=== PATIENT | male | born 1955 | race Caucasian/White ===

== ENCOUNTER 2021-06-07 07:47 | Emergency (ER) | payer BC ==
[2021-06-07] MEDS ORDERED: Sodium Chloride 0.9% 10 ML Syringe FLUSH PRN (08:23)
--- NOTE | 2021-06-07 08:32 | EDM.PDOC ---
ED HPI GENERAL MEDICAL PROBLEM - General Chief Complaint: Abdominal Pain Stated Complaint: ALL OVER STOMACH PROBLEMS Time Seen by Provider: 06/07/21 08:15 Source of Information: Reports: Patient, RN. Denies: Old Records History Limitations: Reports: Other (no records) - History of Present Illness INITIAL COMMENTS - FREE TEXT/NARRATIVE: 65 yo smoking male from [place] presents with progressive abdominal pain since yesterday AM. Was unable to have a BM this AM. No fever, past surgeries, nausea or bloody stool. He has increased pain with movement and thinks his abdomen is distended. He took ibuprofen 800 mg this AM with partial relief. Denies use of any alcohol. Onset: Sudden Onset Date: 06/06/21 Duration: Day(s): (1+), Getting Worse Location: Reports: Abdomen Quality: Reports: Ache Severity: Moderate Improves with: Reports: Medication (ibuprofen helping a little) Worsens with: Reports: Other (unknown) Context: Reports: Other (See HPI) Associated Symptoms: Reports: No Other Symptoms. Denies: Fever/Chills, Nausea/Vomiting Treatments RUNNER OUT: Reports: NSAIDS - Related Data Allergies Allergy/AdvReac Type Severity Reaction Status Date / Time No Known Allergies Allergy Verified 06/07/21 08:02 Home Meds: Home Meds Gabapentin [Neurontin] 100 mg PO DAILY 06/07/21 [History] Levothyroxine 150 mcg PO DAILY 06/07/21 [History] lisinopriL [Lisinopril] 20 mg PO DAILY 06/07/21 [History] Past Medical History Cardiovascular History: Reports: High Cholesterol, Hypertension Genitourinary History: Reports: Prostate Disorder - Infectious Disease History Infectious Disease History: Reports: Chicken Pox, Measles, Mumps - Past Surgical History HEENT Surgical History: Reports: Tonsillectomy Social & Family History - Tobacco Use Tobacco Use Status *Q: Current Every Day Tobacco User Years of Tobacco use: 50 Packs/Tins Daily: 1.2 Used Tobacco, but Quit: No - Caffeine Use Caffeine Use: Reports: Coffee, Soda - Recreational Drug Use Recreational Drug Use: No ED ROS GENERAL - Review of Systems Review Of Systems: See Below Constitutional: Reports: No Symptoms HEENT: Reports: No Symptoms Respiratory: Reports: No Symptoms Cardiovascular: Reports: No Symptoms GI/Abdominal: Reports: Abdominal Pain, Distension. Denies: Black Stool, Bloody Stool, Constipation, Diarrhea, Hematemesis, Hematochezia, Nausea, Vomiting : Reports: No Symptoms Musculoskeletal: Reports: No Symptoms Skin: Reports: No Symptoms Neurological: Reports: No Symptoms ED EXAM, GI/ABD - Physical Exam Exam: See Below Exam Limited By: No Limitations General Appearance: Alert, WD/WN, No Apparent Distress Eyes: Bilateral: Normal Appearance Ears: Normal External Exam, Normal Canal, Hearing Grossly Normal Nose: Normal Inspection, No Blood Throat/Mouth: Normal Inspection, Normal Lips, Normal Voice, No Airway Compromise Head: Atraumatic, Normocephalic Neck: Normal Inspection Respiratory/Chest: No Respiratory Distress, Lungs Clear, Normal Breath Sounds, No Accessory Muscle Use Cardiovascular: Regular Rate, Rhythm, No Edema GI/Abdominal Exam: Normal Bowel Sounds, Soft, Tender (diffusely, more on the L side). No: Non-Tender, Distended (obese), Guarding, Rigid, Rebound Back Exam: Normal Inspection. No: CVA Tenderness (R), CVA Tenderness (L) Extremities: Normal Inspection, Normal Range of Motion, Non-Tender, No Pedal Edema Neurological: Alert, Oriented, CN II-XII Intact, Normal Cognition, No Motor/Sensory Deficits Psychiatric: Normal Affect, Normal Mood Skin Exam: Warm, Dry, Intact, Normal Color, No Rash Course - Vital Signs Text/Narrative:: Dr. Stephenson called @ 1057h Called Marcelino Corbett @ 1102h called Juliano Corbett @ 1110h Called [facility] @ 1112h Called Marcelino Hodges @ 1113h [employer] @ 1200h Last Recorded V/S: Last Vital Signs Temp 36.2 C 06/07/21 10:44 Pulse 60 06/07/21 10:44 Resp 16 06/07/21 10:44 BP 160/80 H 06/07/21 10:44 Pulse Ox 97 06/07/21 10:44 - Orders/Labs/Meds Orders: Active Orders 24 hr Category Date Time Status HYDROmorphone [Dilaudid] Med 06/07/21 13:00 Once 0.5 mg IVPUSH ONETIME ONE Sodium Chloride 0.9% [Normal Saline] 1,000 ml Med 06/07/21 11:00 Active IV ASDIRECTED Sodium Chloride 0.9% [Saline Flush] Med 06/07/21 08:23 Active 10 ml FLUSH ASDIRECTED PRN Saline Lock Insert [OM.PC] Routine Oth 06/07/21 08:23 Ordered Medication Orders Sodium Chloride (Normal Saline) 1,000 mls @ 150 mls/hr IV ASDIRECTED SHILPA Last Admin: 06/07/21 11:03 Dose: 150 mls/hr Documented by: DYLON Sodium Chloride (Sodium Chloride 0.9% 10 Ml Syringe) 10 ml FLUSH ASDIRECTED PRN PRN Reason: Keep Vein Open Last Admin: 06/07/21 08:45 Dose: 10 ml Documented by: DYLON Labs: Laboratory Tests 06/07/21 06/07/21 06/07/21 Range/Units 08:21 08:21 10:20 WBC 11.4 H (4.5-11.0) K/uL RBC 4.96 (4.30-5.90) M/uL Hgb 15.5 H (12.0-15.0) g/dL Hct 47.2 (40.0-54.0) % MCV 95 (80-98) fL MCH 31 (27-31) pg MCHC 33 (32-36) % Plt Count 223 (150-400) K/uL Sodium 134 L (140-148) mmol/L Potassium 4.6 (3.6-5.2) mmol/L Chloride 102 (100-108) mmol/L Carbon Dioxide 25 (21-32) mmol/L Anion Gap 11.6 (5.0-14.0) mmol/L BUN 18 (7-18) mg/dL Creatinine 1.0 (0.8-1.3) mg/dL Est Cr Clr Drug Dosing 80.53 mL/min Estimated GFR (MDRD) > 60 (>60) Glucose 96 (74-106) mg/dL Calcium 9.1 (8.5-10.1) mg/dL C-Reactive Protein 3.18 H (0.0-0.3) mg/dL Lipase 4099 H (73-393) U/L Urine Color (YELLOW) Urine Appearance (CLEAR) Urine pH (5.0-8.0) Ur Specific [place] (1.008-1.030) Urine Protein (NEGATIVE) mg/dL Urine Glucose (UA) (NEGATIVE) mg/dL Urine Ketones (NEGATIVE) mg/dL Urine Occult Blood (NEGATIVE) Urine Nitrite (NEGATIVE) Urine Bilirubin (NEGATIVE) Urine Urobilinogen (0.2-1.0) EU/dL Ur Leukocyte Esterase (NEGATIVE) Urine RBC (0-5) Urine WBC (0-5) Ur Epithelial Cells Amorphous Sediment Urine Bacteria Urine Mucus SARS CoV-2 RNA Rapid ANGELINA 06/07/21 06/07/21 Range/Units 11:00 11:39 WBC (4.5-11.0) K/uL RBC (4.30-5.90) M/uL Hgb (12.0-15.0) g/dL Hct (40.0-54.0) % MCV (80-98) fL MCH (27-31) pg MCHC (32-36) % Plt Count (150-400) K/uL Sodium (140-148) mmol/L Potassium (3.6-5.2) mmol/L Chloride (100-108) mmol/L Carbon Dioxide (21-32) mmol/L Anion Gap (5.0-14.0) mmol/L BUN (7-18) mg/dL Creatinine (0.8-1.3) mg/dL Est Cr Clr Drug Dosing mL/min Estimated GFR (MDRD) (>60) Glucose (74-106) mg/dL Calcium (8.5-10.1) mg/dL C-Reactive Protein (0.0-0.3) mg/dL Lipase (73-393) U/L Urine Color Yellow (YELLOW) Urine Appearance Clear (CLEAR) Urine pH 5.5 (5.0-8.0) Ur Specific [place] 1.015 (1.008-1.030) Urine Protein Negative (NEGATIVE) mg/dL Urine Glucose (UA) Negative (NEGATIVE) mg/dL Urine Ketones Negative (NEGATIVE) mg/dL Urine Occult Blood Trace-intact H (NEGATIVE) Urine Nitrite Negative (NEGATIVE) Urine Bilirubin Negative (NEGATIVE) Urine Urobilinogen 0.2 (0.2-1.0) EU/dL Ur Leukocyte Esterase Negative (NEGATIVE) Urine RBC 0-5 (0-5) Urine WBC Not seen (0-5) Ur Epithelial Cells Not seen Amorphous Sediment Rare Urine Bacteria Not seen Urine Mucus Not seen SARS CoV-2 RNA Rapid ANGELINA Negative Meds: Medications Generic Name Dose Route Start Last Admin Trade Name Freq PRN Reason Stop Dose Admin Sodium Chloride 1,000 mls @ 150 mls/hr 06/07/21 11:00 06/07/21 11:03 Normal Saline IV 150 mls/hr ASDIRECTED SHILPA Administration Sodium Chloride 10 ml 06/07/21 08:23 06/07/21 08:45 Sodium Chloride 0.9% 10 Ml Syringe FLUSH 10 ml ASDIRECTED PRN Administration Keep Vein Open Discontinued Medications Generic Name Dose Route Start Last Admin Trade Name Freq PRN Reason Stop Dose Admin Hydromorphone HCl 0.5 mg 06/07/21 11:26 06/07/21 11:33 Hydromorphone 0.5 Mg/0.5 Ml Syringe IVPUSH 06/07/21 11:27 0.5 mg ONETIME ONE Administration Sodium Chloride 89 mls @ 3.5 mls/sec 06/07/21 09:15 06/07/21 09:22 Normal Saline IV 06/07/21 09:16 3.5 mls/sec ASDIRECTED SHILPA Administration Iopamidol 150 ml 06/07/21 09:14 06/07/21 09:22 Iopamidol 612 Mg/Ml 500 Ml Multipack Bottle IV 06/07/21 09:15 150 ml ONETIME ONE Administration Sodium Chloride 10 ml 06/07/21 09:14 06/07/21 09:22 Sodium Chloride 0.9% 10 Ml Syringe FLUSH 06/07/21 09:15 10 ml ONETIME ONE Administration - Radiology Interpretation Free Text/Narrative:: FINDINGS: Peripancreatic inflammatory changes involving the distal body and tail of the pancreas. No evidence of pancreatic necrosis. No evidence of pancreatic ductal dilatation. A 5.9 x 5.8 x 6.6 cm cystic lesion with enhancing wall in the left upper quadrant of the abdomen; I am not certain whether this involves the left adrenal gland or a cyst involving the upper pole left kidney. Either way concern this is in infected fluid collection possibly an abscess. The right adrenal gland is unremarkable. No kidney stones or obstructive uropathy. Small cortical cyst both kidneys. Inflammatory changes with fluid tracking down the left paracolic gutter from peripancreatic inflammatory changes. Normal appendix. No focal hepatic or splenic pathology. Gallbladder is unremarkable. Diverticulosis sigmoid colon without any CT evidence of diverticulitis or abscess. Thickened wall of the urinary bladder; rule out cystitis. No abnormal intra pulmonary nodular densities through the lung bases. No evidence of pleural effusion. The thymus is liver. Impression: 1. Peripancreatic inflammatory changes surrounding the distal body and tail of the pancreas with inflammatory changes extending into the left paracolic area; rule out acute pancreatitis. 2. A 6.6 x 5.8 x 5.9 cm cystic mass left upper quadrant of the abdomen cannot determine if this is originating in the left adrenal gland or a cystic lesion originating from the upper pole of the left kidney with enhancing wall; rule out infected fluid collection. 3. Normal appendix. 4. No kidney stones or obstructive uropathy. Please note that all CT scans at this facility use dose modulation, iterative reconstruction, and/or weight-based dosing when appropriate to reduce radiation dose to as low as reasonably achievable. Dictated by Carlitos Lira MD @ 06/07/2021 10:34:[address] abd/pelvis with IV contrast- CT Results Date: 06/07/21 CT Results Time: 10:15 - Re-Assessments/Exams Free Text/Narrative Re-Assessment/Exam: 06/07/21 13:01 Wants to sign out AMA and head for home to be seen there. Departure - Departure Time of Disposition: 13:15 Disposition: Against Medical Advice 07 Condition: Fair Clinical Impression: Abdominal abscess Acute pancreatitis Qualifiers: Pancreatitis type: idiopathic Acute pancreatitis complication: no infection or necrosis Qualified Code(s): K85.00 - Idiopathic acute pancreatitis without necrosis or infection - Discharge Information *PRESCRIPTION DRUG MONITORING PROGRAM REVIEWED*: Not Applicable *COPY OF PRESCRIPTION DRUG MONITORING REPORT IN PATIENT MATEO: Not Applicable Referrals: PCP,None [Primary Care Provider] - Forms: ED Department Discharge Additional Instructions: Clear liquids only. Take your CT images and lab work with you. If you get a lot worse on the way find another hospital. Sepsis Event Note (ED) - Evaluation Sepsis Screening Result: No Definite Risk - Focused Exam Vital Signs: Vital Signs Temp Pulse Resp BP Pulse Ox 06/07/21 10:44 36.2 C 60 16 160/80 H 97 06/07/21 08:17 36.0 C L 77 16 162/80 H 98 06/07/21 08:15 36.0 C L 77 16 162/80 H 98 - My Orders Last 24 Hours: My Active Orders 06/07/21 08:23 Sodium Chloride 0.9% [Saline Flush] 10 ml FLUSH ASDIRECTED PRN Saline Lock Insert [OM.PC] Routine 06/07/21 11:00 Sodium Chloride 0.9% [Normal Saline] 1,000 ml IV ASDIRECTED 06/07/21 13:00 HYDROmorphone [Dilaudid] 0.5 mg IVPUSH ONETIME ONE - Assessment/Plan Last 24 Hours: My Active Orders 06/07/21 08:23 Sodium Chloride 0.9% [Saline Flush] 10 ml FLUSH ASDIRECTED PRN Saline Lock Insert [OM.PC] Routine 06/07/21 11:00 Sodium Chloride 0.9% [Normal Saline] 1,000 ml IV ASDIRECTED 06/07/21 13:00 HYDROmorphone [Dilaudid] 0.5 mg IVPUSH ONETIME ONE
[2021-06-07] MEDS ORDERED: Iopamidol 612 MG/ML 500 ML Multipack Bottle IV ONE (09:14)
[2021-06-07] MEDS ORDERED: Sodium Chloride 0.9% 10 ML Syringe FLUSH ONE (09:14)
--- NOTE | 2021-06-07 10:36 | CRLCT ---
For Patients: As a result of the Century Cures Act, medical imaging exams and procedure reports are released immediately into your electronic medical record. You may view this report before your referring provider. If you have questions, please contact your health care provider. INDICATION: Left-sided abdominal pain; elevated WBC count and CRP . Comparison :none. TECHNIQUE: CT abdomen and pelvis with intravenous contrast; coronal and sagittal reformats. FINDINGS: Peripancreatic inflammatory changes involving the distal body and tail of the pancreas. No evidence of pancreatic necrosis. No evidence of pancreatic ductal dilatation. A 5.9 x 5.8 x 6.6 cm cystic lesion with enhancing wall in the left upper quadrant of the abdomen; I am not certain whether this involves the left adrenal gland or a cyst involving the upper pole left kidney. Either way concern this is in infected fluid collection possibly an abscess. The right adrenal gland is unremarkable. No kidney stones or obstructive uropathy. Small cortical cyst both kidneys. Inflammatory changes with fluid tracking down the left paracolic gutter from peripancreatic inflammatory changes. Normal appendix. No focal hepatic or splenic pathology. Gallbladder is unremarkable. Diverticulosis sigmoid colon without any CT evidence of diverticulitis or abscess. Thickened wall of the urinary bladder; rule out cystitis. No abnormal intra pulmonary nodular densities through the lung bases. No evidence of pleural effusion. The thymus is liver. Impression: 1. Peripancreatic inflammatory changes surrounding the distal body and tail of the pancreas with inflammatory changes extending into the left paracolic area; rule out acute pancreatitis. 2. A 6.6 x 5.8 x 5.9 cm cystic mass left upper quadrant of the abdomen cannot determine if this is originating in the left adrenal gland or a cystic lesion originating from the upper pole of the left kidney with enhancing wall; rule out infected fluid collection. 3. Normal appendix. 4. No kidney stones or obstructive uropathy. Please note that all CT scans at this facility use dose modulation, iterative reconstruction, and/or weight-based dosing when appropriate to reduce radiation dose to as low as reasonably achievable. Dictated by Carlitos Lira MD @ 06/07/2021 10:34:49 AM (Electronically Signed)
[2021-06-07] MEDS ORDERED: Sodium Chloride 0.9% 1,000 ML IV SCH (11:00)
[2021-06-07] MEDS ORDERED: HYDROmorphone 0.5 MG/0.5 ML Syringe IVPUSH ONE ×2 (11:26→13:00)
== END 2021-06-07 13:25 | disposition left against medical advice (07) ==
LOC: JP.ED 07:47
DX: K85.00 Idiopathic acute pancreatitis without necrosis or infection (principal); L02.211 Cutaneous abscess of abdominal wall; I10 Essential (primary) hypertension; Z72.0 Tobacco use; Z79.899 Other long term (current) drug therapy; Z20.822 Contact with and (suspected) exposure to COVID-19
CPT/HCPCS: 36415; 74177; 80048; 81001; 83690; 85027; 86140; 87635; 96374; 96376; 99284; J1170; J7030; Q9967; U0002